=== PATIENT | male | born 1945 | race Caucasian/White ===

== ENCOUNTER → 2017-03-10 | Outpatient (CLI) | payer BC ==
[~2017-03-10] MED LIST: GERITOL COMPLETE; GLCSC750600; OMEG10007 PO; VITA400C15 PO; azo
[2017-03-10 13:06] LABS: GLUCOSE,FASTING 87 mg/dl (70-99)
[2017-03-10 13:14] LABS: CHOLESTEROL 229 mg/dl (0-200); CHOLESTEROL/HDL RATIO 3.8; HDL CHOLESTEROL 60 mg/dl; LDL CHOLESTEROL CALCULATED 155 mg/dl; PROSTATE SPECIFIC ANTIGEN < 0.010 ng/ml (0.000-4.000); TRIGLYCERIDES 68 mg/dl (0-150); VERY LOW DENSITY LIPOPROT CALC 14 mg/dl
== END | disposition home or self-care (01) ==
LOC: C.LABMFLN 10:07
PROVIDERS: ATTEND Family Medicine
DX: E78.5 Hyperlipidemia, unspecified (principal); C61 Malignant neoplasm of prostate

== ENCOUNTER → 2017-09-10 | Outpatient (CLI) | payer BC ==
[2017-09-10 14:13] LABS: CHOLESTEROL/HDL RATIO 2.8
== END | disposition home or self-care (01) ==
LOC: C.LABMFLN 09:15
PROVIDERS: ATTEND Family Medicine
DX: E78.5 Hyperlipidemia, unspecified (principal)

== ENCOUNTER → 2018-03-15 | Outpatient (CLI) | payer BC ==
[2018-03-15 14:04] LABS: GLUCOSE,FASTING 87 mg/dl (70-99)
[2018-03-15 14:12] LABS: ALT/SGPT 23 U/L (12-78); AST/SGOT 14 U/L (15-37); CHOLESTEROL 147 mg/dl (0-200); LDL CHOLESTEROL CALCULATED 84 mg/dl
== END | disposition home or self-care (01) ==
LOC: C.LABMFLN 09:18
PROVIDERS: ATTEND Family Medicine
DX: E78.5 Hyperlipidemia, unspecified (principal); C61 Malignant neoplasm of prostate

== ENCOUNTER → 2018-04-13 | Outpatient (CLI) | payer BC ==
--- NOTE | 2018-04-13 13:56 | EXERCISE STRESS ECHO ---
*NOTICE TO RECEIVING DEMOCRAT AGENCY This information is strictly Confidential and protected under [place] law. [place] law prohibits you from making any further disclosure of this information unless further disclosure is expressly permitted by the written consent of the person to whom it pertains or is authorized by law. A general authorization for the release of medical or other information is not sufficient for this purpose. Hospital accepts no responsibility if the information is made available to any other person, INCLUDING THE PATIENT. Interpretation Summary * Name: PHIL LAYTON Study Date: 04/13/2018 09:25 AM BP: 158/93 mmHg * Patient Location: [facility] HR: 95 * : 1945 (M/d/yyyy) Gender: Male Height: 70 in * Age: 72 yrs Ethnicity: CA Weight: 170 lb * Ordering Physician: Luis Ardon * Referring Physician: Luis Ardon * Performed By: Lorena Brito RDCS * * Reason For Study: Abnormal EKG * BSA: 1.9 m2 * -- Conclusions -- * Stress Echo: * 1. Negative stress echo for ischemia at 107 % MPHR. * 2. Negative exercise ECG for ischemia at 107 % MPHR. * 3. Hypertensive blood pressure response to exercise. * 4. Nonsustained atrial tachycardia up to 4 beats in duration. * 5. Study terminated due to hypertension. No chest pain reported. * 6. Poor exercise tolerance. * Echo: * 1. Normal left ventricular size and systolic function. EF 55-60%. No regional wall motion abnormalities. No left ventricular hypertrophy. Type 1 diastolic dysfunction. * 2. There is mild mitral regurgitation. * 3. There is moderate to severe mitral annular calcification. Procedure Details * ECHOEX, CPT #[id number] * ECHO DOPPLER, CPT #[id number] * ECHO COLOR FLOW, CPT #[id number] Left Ventricle * Normal left ventricular size and systolic function. EF 55-60%. No regional wall motion abnormalities. No left ventricular hypertrophy. Type 1 diastolic dysfunction. * Ejection Fraction = 55-60%. * The left ventricular ejection fraction increases normally with stress. The left ventricular end-systolic cavity size reduces post-stress (normal response). The left ventricular wall motion with stress is normal. * Resting wall motion: Normal. Stress wall motion: Appropriate increase in Left ventricular systolic function and decrease in cavity size. No stress induced segmental wall motion abnormalities. Right Ventricle * The right ventricle is normal size. * The right ventricular systolic function is normal as assessed by tricuspid annular plane systolic excursion (TAPSE) (normal >1.5 cm). Atria * The left atrial size is normal. * Right atrial size is normal. * There is no evidence of atrial septal defect, but resolution does not allow assessment for a patent foramen ovale. Mitral Valve * There is moderate to severe mitral annular calcification. * There is no mitral valve stenosis. * There is mild mitral regurgitation. Tricuspid Valve * The tricuspid valve is not well visualized, but is grossly normal. * There is no tricuspid stenosis. * There is trace tricuspid regurgitation. Aortic Valve * The aortic valve is trileaflet. * No hemodynamically significant valvular aortic stenosis. * No aortic regurgitation is present. Pulmonic Valve * The pulmonary valve is inadequately visualized, but the Doppler data is adequate for interpretation. * Mild pulmonic valvular regurgitation. Great Vessels * The aortic root is normal size. * Ascending aorta of normal dimension * Normal pulmonary venous flow pattern. Normal IVC size and inspiratory collapse. Pericardium * Trace pericardial effusion. Stress Parameters * Sinus rhythm 80 bpm. * No significant ST changes. Nonsustained atrial tachycardia up to 4 beats in duration. * The stress portion of this study was personally supervised by the undersigned interpreting physician. * Rest heart rate was '95' BPM. * Rest blood pressure was '158/93' * Maximum heart rate achieved was 157 bpm. * Maximum heart rate was 107 % of maximum age-predicted heart rate. * Maximum blood pressure was '218/109' * Total exercise time was '3:00' * Maximum exercise MET level achieved was '4.60' METS * Maximum treadmill speed was '1.70' miles per hour. * Maximum treadmill elevation was '10.00'% grade. * Exercise was terminated due to 'elevated blood pressure, and achieving target heart rate' MMode 2D Measurements and Calculations IVSd 0.95 cm LVIDd 3.9 cm LVIDs 2.7 cm LVPWd 0.91 cm IVS/LVPW 1.1 FS 31.3 % EDV(Teich) 64.4 ml ESV(Teich) 25.9 ml EF(Teich) 59.8 % EDV(cubed) 57.6 ml ESV(cubed) 18.7 ml EF(cubed) 67.5 % LV mass(C)d 108.7 grams LV mass(C)dI 55.8 grams/m\S\2 SV(Teich) 38.5 ml SI(Teich) 19.8 ml/m\S\2 SV(cubed) 38.9 ml SI(cubed) 20.0 ml/m\S\2 Ao root diam 4.0 cm Ao root area 12.7 cm\S\2 ACS 1.9 cm LA dimension 3.1 cm asc Aorta Diam 3.5 cm LA/Ao 0.76 LVOT diam 2.3 cm LVOT area 4.3 cm\S\2 LVAd ap4 31.3 cm\S\2 LVLd ap4 8.4 cm EDV(MOD-sp4) 95.0 ml EDV(sp4-el) 98.8 ml LVAs ap4 19.2 cm\S\2 LVLs ap4 7.4 cm ESV(MOD-sp4) 41.6 ml ESV(sp4-el) 42.4 ml EF(MOD-sp4) 56.2 % EF(sp4-el) 57.1 % LVAd ap2 29.6 cm\S\2 LVLd ap2 8.4 cm EDV(MOD-sp2) 85.7 ml EDV(sp2-el) 88.3 ml LVAs ap2 19.0 cm\S\2 LVLs ap2 7.5 cm ESV(MOD-sp2) 42.6 ml ESV(sp2-el) 40.7 ml EF(MOD-sp2) 50.3 % EF(sp2-el) 54.0 % LVLd %diff 0.01 % EDV(MOD-bp) 90.4 ml LVLs %diff 2.5 % ESV(MOD-bp) 42.1 ml EF(MOD-bp) 53.5 % SV(MOD-sp4) 53.4 ml SI(MOD-sp4) 27.4 ml/m\S\2 SV(MOD-sp2) 43.2 ml SI(MOD-sp2) 22.2 ml/m\S\2 SV(MOD-bp) 48.3 ml SI(MOD-bp) 24.8 ml/m\S\2 SV(sp4-el) 56.4 ml SI(sp4-el) 29.0 ml/m\S\2 SV(sp2-el) 47.7 ml SI(sp2-el) 24.5 ml/m\S\2 Doppler Measurements and Calculations MV E max angie 68.5 cm/sec MV A max angie 83.6 cm/sec MV E/A 0.82 MV dec time 0.25 sec Ao V2 max 114.7 cm/sec Ao max PG 5.3 mmHg Ao max PG (full) 3.6 mmHg CHELE(V,A) 2.4 cm\S\2 CHELE(V,D) 2.4 cm\S\2 LV V1 max PG 1.6 mmHg LV V1 max 64.2 cm/sec MR max angie 585.0 cm/sec MR max PG 136.9 mmHg MR mean angie 460.0 cm/sec MR mean PG 96.0 mmHg MR VTI 208.7 cm PA V2 max 66.4 cm/sec PA max PG 1.8 mmHg PA acc slope 427.1 cm/sec\S\2 PA acc time 0.10 sec PI end-d angei 99.2 cm/sec PI max angie 133.7 cm/sec PI max PG 7.2 mmHg PI dec slope 72.2 cm/sec\S\2 PI P1/2t 542.4 msec TR max angie 217.4 cm/sec PA pr(Accel) 35.3 mmHg
== END | disposition home or self-care (01) ==
LOC: C.CPL 09:18
PROVIDERS: ATTEND Family Medicine
DX: R94.31 Abnormal electrocardiogram [ECG] [EKG] (principal)

== ENCOUNTER 2023-12-14 08:53 | Observation (INO) ==
--- NOTE | 2023-12-03 10:32 | PAT Medication Instructions ---
Medication Instructions Date of Service December 03, 2023 Home Medications Medication Instructions Recorded lovastatin 10 mg tablet 10 mg PO QPM #90 tabs 08/03/23 cholecalciferol (vitamin D3) 25 mcg (1,000 unit) tablet (Vitamin D3) 1,000 unit PO QAM multivitamin 1 tab PO QAM acetaminophen 650 mg tablet,extended release (Tylenol 8 Hour) 650 mg PO Q8H lovastatin 10 mg tablet 10 mg PO QPM ferrous sulfate 325 mg (65 mg iron) tablet 325 mg PO QAM glucosamine-chondroitin 250 mg-200 mg tablet (Osteo Bi-Flex) 2 tab PO QAM mecobalamin (vitamin B12) 1,000 mcg disintegrating tablet,sublingual 1,000 mcg sublingual QAM nystatin 100,000 unit/gram topical cream 1 applic topical BID PRN pantoprazole 40 mg tablet,delayed release 40 mg PO QAM STOP taking 2 weeks before surgery (or as soon as possible if surgery is within 2 weeks) glucosamine-chondroitin 250 mg-200 mg tablet (Osteo Bi-Flex) 2 tab PO QAM STOP taking 24 hours before surgery nystatin 100,000 unit/gram topical cream 1 applic topical BID PRN DO NOT take the morning of surgery cholecalciferol (vitamin D3) 25 mcg (1,000 unit) tablet (Vitamin D3) 1,000 unit PO QAM multivitamin 1 tab PO QAM ferrous sulfate 325 mg (65 mg iron) tablet 325 mg PO QAM mecobalamin (vitamin B12) 1,000 mcg disintegrating tablet,sublingual 1,000 mcg s ublingual QAM Take morning of surgery With a small sip of water, OTHERWISE NOTHING TO EAT OR DRINK AFTER MIDNIGHT: acetaminophen 650 mg tablet,extended release (Tylenol 8 Hour) 650 mg PO Q8H pantoprazole 40 mg tablet,delayed release 40 mg PO QAM Take evening before surgery acetaminophen 650 mg tablet,extended release (Tylenol 8 Hour) 650 mg PO Q8H lovastatin 10 mg tablet 10 mg PO QPM Other Notes If you have any questions please call us at [phone] or [phone] or [phone] or [phone]
--- NOTE | 2023-12-08 09:04 | Anesthesiology Consultation ---
Date of Service December 08, 2023 Assessment & Plan (1) Encounter for pre-operative examination: Outpatient joint assessment: Patient is currently scheduled for inpatient pathway. If re-evaluated and patient/surgeon requests outpatient pathway, patient is not recommended candidate for outpatient joint program from anesthesia standpoint. Chart Review Chart Review: Acceptable Risk for Surgery and Patient seen in Pre Admission Testing Teaching & Discussion Pre-Anesthesia Teaching/Discussion Notes: Instructed NPO after midnight before surgery, except medications with 15 cc of water. Medication instructions pr ovided according to the PAT guidelines. History Surgery Operation Date: 12/14/23 12:55 Proposed Procedures p Right Total Knee Arthroplasty - Cheo Phan MD Height/Weight Height: 5 ft 10 in Weight: 80.7 kg Allergies Allergy/AdvReac Type Severity Reaction Status Date / Time aspirin AdvReac Intermediate Blood in Verified 12/03/23 08:59 stool Medications Home Medications Medication Instructions Recorded Confirmed Last Taken cholecalciferol (vitamin D3) 25 1,000 unit PO QAM 11/06/20 12/03/23 11/10/20 mcg (1,000 unit) tablet (Vitamin D3) multivitamin 1 tab PO QAM 11/06/20 12/03/23 11/09/20 acetaminophen 650 mg 650 mg PO Q8H 08/13/21 12/03/23 Unknown tablet,extended release (Tylenol 8 Hour) lovastatin 10 mg tablet 10 mg PO QPM #90 tabs 08/03/23 12/03/23 Unknown ferrous sulfate 325 mg (65 mg 325 mg PO QAM 08/16/23 12/03/23 Unknown iron) tablet glucosamine-chondroitin 250 mg-200 2 tab PO QAM 09/08/23 12/03/23 Unknown mg tablet (Osteo Bi-Flex) mecobalamin (vitamin B12) 1,000 1,000 mcg sublingual QAM 12/03/23 12/03/23 Unknown mcg disintegrating tablet,sublingual nystatin 100,000 unit/gram topical 1 applic topical BID PRN Skin 12/03/23 12/03/23 Unknown cream Irritation pantoprazole 40 mg tablet,delayed 40 mg PO QAM 12/03/23 12/03/23 Unknown release Past Medical History Medical History Bradycardia Hx, no recent issues Paroxysmal supraventricular tachycardia by electrocardiogram (ECG) "No additional therapy is required in the absence of recurrent symptoms." per 09/2020 [facility] cardiology note Gastritis hx, more than 1 year ago Anemia chronic Hgb 11-12 since 2020 Personal history of prostate cancer Hx age 60s, s/p brachytherapy Hypercholesterolemia Patient denies h/o stroke, seizures, heart attack, heart failure, DM, HTN, blood clots/DVTs or blood transfusions. Exercise / Class Metabolic Activity II 4-5 Yardwork/Stairs/Walk up hill (denies chest discomfort or shortness of breath with 1 FOS) Past Family History Family History Other No family history of adverse response to anesthesia No pertinent family history Past Surgical History Surgical History Hx of brachytherapy History of esophagogastroduodenoscopy (EGD) Dr. Perry 11/11/20 History of herniorrhaphy inguinal History of colonoscopy Dr. Perry 11/11/20 Past Anesthesia History No Hx of Anesthesia Complications and No Family Hx of Anesthesia Complications History of PONV No Hx of PONV and Hx of Motion Sickness Social History Smoking Status: Never smoker Do You Dip or Chew Tobacco: No Hx Alcohol Use: No Hx Substance Use: No substance use type: does not use Review of Systems Occasional snoring, denies witnessed apneas. Patient denies chest pain, shortness of breath, dyspnea on exertion, reflux, fever, chills, cough, wheezing, or palpitations. Physical Exam Vital Signs Vitals BP 137/72 P 71 TEMP 98.3 SP02 94% on RA RESP 17 Physical Patient resting comfortably in chair in no acute distress, alert and oriented, responding appropriately throughout visit Full cervical extension range of motion without pain TMD 3.5 finger breadths Mallampati Score 2 Dentition: one cap, denies chipped or loose teeth, caps, implants or bridges Lungs: normal respiratory effort. Good air movement, clear throughout to auscultation, no adventitious breath sounds Cardiac: regular rate and rhythm, no murmurs noted Carotid arteries: negative bruit bilat Lab Results Anesthesia Preop Results Results Anesthesia Widget: WBC 8.18 K/ul (4.8-10.8) 12/08/23 Hgb 12.6 g/dl (14.0-18.0) L 12/08/23 Hct 39.1 % (42.0-52.0) L 12/08/23 Plt 281 K/uL (130-400) 12/08/23 Na 141 mmol/L (136-145) 12/08/23 K 4.6 mmol/L (3.5-5.1) 12/08/23 Cl 106 mmol/L (98-107) 12/08/23 CO2 29 mmol/L (21-32) 12/08/23 BUN 28 mg/dl (6-23) H 12/08/23 Creat 0.99 mg/dl (0.6-1.4) 12/08/23 Glucose Level 78 mg/dl (70-99(Fasting)) 12/08/23 PT 11.1 Seconds (9.0-12.0) 12/08/23 PTT 28 Seconds (21-31) 12/08/23 INR 1.0 (0.9-1.1) 12/08/23 Blood Type O Positive 12/08/23 Antibody Screen NEGATIVE 12/08/23 Testing Laboratory Results Chronic anemia, Hgb stable at 12 to chart review. Electrocardiogram Date: 12/08/23 Sinus rhythm with frequent PVCs and PACs, rate 94 bpm Otherwise normal ECG Chest X-Ray Date: 12/08/23 PA and lateral chest radiographs are compared to study dated 03/21/2008. The heart is enlarged and noted atherosclerotic calcification of the thoracic aorta. The pulmonary vasculature is noncongested. Chronic interstitial thickening is similar to previous. There is mild bibasilar scarring/atelectasis. The lungs and pleural spaces are otherwise clear. There is no pneumothorax. The skeletal structures are osteopenic. The bony thorax appears intact. IMPRESSION: Cardiomegaly with no active disease in the chest. Stress Test Date: 10/02/20 METS 4 MPHR 152% SVT developed during exercise with heart rates as high as 218 bpm Study terminated due to SVT EF 55-60% No regional wall motion abnormalities Moderate cLVH Mild mitral regurgitation
[~2023-12-14 08:53] MED LIST changes: +ACETAMINOPHEN 500 MG TAB PO SCH; +BUPIVACAINE 0.25% PF 30 ML VIAL ONE; +BUPIVACAINE 0.5 % 5 MG/1 ML PF 10ML VIAL ONE; +CeleBREX 200 MG CAP PO SCH; +FAMOTIDINE 20 MG TAB PO SCH; -GERITOL COMPLETE; -GLCSC750600; +LR 500ML BOLUS, THEN 15ML/HR IV SCH; +LR 60ML/HR IV SCH; +METOCLOPRAMIDE HCL 10 MG TABLET PO SCH; +MIDAZOLAM HCL 1 MG/ML 2ML VIAL ONE; -OMEG10007 PO; +ROPIV 0.5% 246mg, Ketorolac 30mg, EPINEPHrine 0.5mg in NSS INFIL SCH; +TRANEXAMIC ACID 1,000 MG **IV Intra-op IV SCH; -VITA400C15 PO; -azo; +ceFAZolin 2000MG 2,000 MG/15 ML SYR IV SCH; +dexAMETHasone**PF** 10 MG/ML VIAL IV SCH
--- NOTE | 2023-12-14 09:01 | History & Physical Bridge Note ---
Date of Service December 14, 2023 History & Physical Bridge Note I have examined the patient, reviewed the History & Physical and in the interval since the performance of the History & Physical I have noted the following changes of clinical significance: no changes noted
[2023-12-14] MEDS ORDERED: BUPIVACAINE/EPINEPHRINE 0.5% MPF 1:200,000 30 ML VIAL ONE (11:07)
[2023-12-14] MEDS ORDERED: SODIUM CHLORIDE 0.9% PF 50 ML VIAL ONE (11:07)
[2023-12-14] MEDS ORDERED: BUPIVACAINE LIPOSOME 1.3% 266 MG/20 ML VIAL ONE (11:08)
[2023-12-14] MEDS ORDERED: PROPOFOL IV EMULSION 10 MG/ML 20 ML VIAL IV ONE (12:15)
--- NOTE | 2023-12-14 13:18 | Operative Report ---
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 The grade 4 [id number] disease in all 3 compartments most severe medially. He had a fixed varus deformity to his knee. Chronic ACL deficiency. Osteophytes in all 3 compartments. Specimens Right knee sent for pathology. Anesthesia Type Spinal MAC Complications none Disposition Accompanied Patient To Recovery: No Indications Patient is an 78-year-old very active [place] who has had a long history of bilateral knee pain discomfort describes gotten worse over time. He exhausted conservative care. Pains become more disabling. He elected proceed with right total knee arthroplasty. Description of Procedure Operative implants consist of: 1. Biomet Vanguard size 75 right posterior stabilized femoral component. 2. Biomet size 79 tibial tray. 3. 12 mm posterior stabilized polyethylene insert. 4. 34 x 8-1/2 all poly patella. The patient was taken to the operating, identified, placed on the operating table in the supine position. All contact areas were appropriately padded. IV antibiotics 5 by anesthesia team. A spinal anesthetic and adductor canal block had been divided in the holding area. A right thigh turn was then placed. The right lower extremities then prepped and draped in usual sterile fashion. The right leg was elevated exsanguinated with use of an Esmarch and the tourniquet was placed at 300 mmHg. An anterior approach to the right knee was then performed to longitudinal incision centered over the patella. Sharp dissection was carried through subcutaneous tissue down the extensor mechanism. A medial parapatellar arthrotomy incision was made. Some subperiosteal dissection was carried out medially. The fat pad was resected from Neath patella tendon. The lateral patellofemoral ligament was released. Patella subluxated laterally knee was flexed. The osteophytes taken on distal femur. ACL PCL then released from distal femur the tibia subluxated anteriorly. The external tibial alignment jig was then placed in the interface the tibia and adjusted 14 mm medially. Proximal tibial cut was made essentially flush with the most deficient aspect the posterior medial tibial plateau. Some osteophytes were taken off medially. Tibia was sized to a size 79. Attention drawn the femur. The distal femur examined the sharp drill. Intramedullary canal was suction. A right 6 degree valgus cutting guide was placed. Distal femoral cutting block was pinned in place. Distal femoral cut was made to take an additional 3 mm of bone off distal femur. The femur was then sized to a size 75. The AP cutting block was pinned parallel to the epicondylar axis which was 4 degrees of external rotation. The anterior cut, anterior chamfer, posterior cut, posterior chamfer cuts were made. The box cutting guide was placed in just slight lateral and the box cut was made to the knee was flexed. The remnants of the medial and lateral menisci were excised. The osteophytes taken off the posterior aspect the femur. Trial femoral component was placed. The tibial tray was pinned Binta external rotation and the drill and stem punch used to create defect in proximal tibia for the tibial tray. The knee was then trialed and the 12 mm insert fit most appropriately. Attention drawn the patella. The patella was cleaned of all soft tissues. Patella thickness measured 25 mm in thickness was cut down to 14. Was sized to a size 34 patella. The lug holes were drilled for 34 patella. The lateral osteophyte was made. Patella button was placed. Knee was taken through range of motion patella tracked nicely with no thumbs test. Attention drawn to placing the permanent components. Nupathe all trial components were removed. Bone plug was placed in the distal femur limit blood loss. A double batch Palacos G cement was mixed. Biomet Vanguard size 75 right Po stabilized femoral component, size 79 tibial tray, a size 12 mm post stabilized polyethylene insert, and a size 34 x 8 and half all Paller patella then cemented in place. Knee was brought out into full extension till cement hardened. Final cement check was then performed. The pericapsular tissues were injected with total 100 cc of combination of 20 cc of Exparel, 30 cc normal saline, 50 cc of quarter percent Marcaine with epinephrine. Patient did receive 1 g tranexamic acid. The tourniquet was let down for final tourniquet time 56 minutes. Hemostasis assured use electrocautery. Extensor Meclomen closed with combination 1 PDS suture #1 Vicryl suture in a [id number] fashion. Extensor mechanism checked found to be intact through the subcutaneous tissue then closed with 2 Dexon suture in buried interrupted fashion skin was closed skin evan. Leg was then cleaned and dried and a sterile dressing with Xeroform, 4 fours, sterile cast padding, José Antonio bandage were applied. Patient then transferred to the recovery room in stable condition. Patient tolerated procedure well and there were no complications. Emmanuel Naik, my physician resident care assistant, was present for the entire procedure. His assistance was essential and required for appropriate patient positioning, prepping and draping, surgical exposure, performing the technical details of the operation, placement the implants, closure of the wound, and placement of the sterile bandage. I attest to the content of the Intraoperative Record and any orders documented therein. Any exceptions are noted below.
[2023-12-14] MEDS ORDERED: ePHEDrine sulfate 50 MG/ML AMP IV PRN (13:50)
[2023-12-14] MEDS ORDERED: ATROPINE SULFATE 0.1 MG/ML 10ML SYR IV PRN (13:50)
[2023-12-14] MEDS ORDERED: fentaNYL citrate PF 100 MCG/2 ML VIAL IV PRN (13:50)
[2023-12-14] MEDS ORDERED: ONDANSETRON INJ 2 MG/ML 2 ML VIAL IV PRN ×2 (13:50→14:48)
--- NOTE | 2023-12-14 14:01 | XRay Report ---
XR knee RT 1 or 2V routine HISTORY: 78 years-old Male Surgical Post Op right knee arthroplasty COMPARISON: 12/02/2023 TECHNIQUE: 2 views the right knee FINDINGS: Right knee total joint arthroplasty with patellar resurfacing. Anterior midline skin evan with exp ected postoperative soft tissue swelling and deep tissue air. Arterial calcifications. No acute fract ure, dislocation or unexpected opaque foreign body. IMPRESSION: Total joint arthroplasty with expected postoperative changes. ACT 112: Negative or not required by law. The above report was generated using voice recognition software. It may contain grammatical, syntax o r spelling errors. Electronically signed by: Ramy Kumar M.D. 12/14/2023 1:59 PM
[2023-12-14] MEDS ORDERED: METOCLOPRAMIDE HCL INJ 5 MG/ML 2 ML VIAL IV PRN (14:48)
[2023-12-14] MEDS ORDERED: NALOXONE HCL 0.4 MG/1 ML VIAL/CARP IV PRN (14:48)
[2023-12-14] MEDS ORDERED: ALUMINUM/MAGNESIUM SUSP 30 ML UDC PO PRN (14:48)
[2023-12-14] MEDS ORDERED: MAGNESIUM HYDROXIDE SUSP 30 ML UDC PO PRN (14:48)
[2023-12-14] MEDS ORDERED: bisacodyL 10 MG SUPP PR PRN (14:48)
[2023-12-14] MEDS ORDERED: oxyCODONE HCL IR 5 MG TAB (IMMEDIATE RELEASE) PO PRN (14:48)
[2023-12-14] MEDS ORDERED: HYDROmorphone INJ 0.5 MG/0.5 ML SYR IV PRN (14:48)
--- NOTE | 2023-12-14 15:01 | Anesthesiology Progress Note ---
Date of Service December 14, 2023 Anesthesia Post Procedure Vital Signs Vital Signs: Temp Pulse Pulse Resp BP Pulse Ox O2 Del Method 12/14/23 14:30 36.5 C 99 H 18 136/85 99 Room Air 12/14/23 14:05 91 H 16 128/74 94 Room Air 12/14/23 13:50 36.4 C L 94 H 16 113/83 94 Room Air 12/14/23 13:40 97 H 16 136/76 95 Room Air 12/14/23 13:30 96 H 15 134/76 97 Room Air 12/14/23 13:20 98 H 17 113/76 97 Oxymask 12/14/23 13:11 36.2 C L 101 H 17 108/65 96 Oxymask 12/14/23 09:29 36.4 C L 86 20 174/92 H 96 Room Air O2 Flow Rate 12/14/23 14:30 12/14/23 14:05 12/14/23 13:50 12/14/23 13:40 12/14/23 13:30 12/14/23 13:20 5 12/14/23 13:11 5 12/14/23 09:29 Transfer of Care Handoff Completed per policy Notes Mental Status: alert / awake / arousable Patient Amnestic to Procedure: Yes Nausea / Vomiting: adequately controlled Pain: adequately controlled Airway Patency, RR, SpO2: stable & adequate BP & HR: stable & adequate Hydration State: stable & adequate Neuraxial Anesthesia: was administered and sensory block is resolving Anesthetic Complications: no major complications apparent and Pt Satisfied with anesthetic care
[2023-12-14] MEDS: SODIUM CHLORIDE 0.9% 1,000 ML IV SCH (15:25)
[2023-12-14] MEDS: ACETAMINOPHEN 500 MG TAB PO SCH ×2 (15:25→20:28)
[2023-12-14] MEDS: KETOROLAC TROMETHAMINE 15 MG/ML VIAL IV SCH ×2 (15:25→20:32)
[2023-12-14] MEDS: ASCORBIC ACID 500 MG TAB PO SCH (16:31)
--- NOTE | 2023-12-14 17:56 | Surgery Progress Note ---
Date of Service December 14, 2023 Assessment & Plan (1) Status post right knee replacement: Plan: 78-year-old male monroy a postop from a right knee replacement clinically doing well. Has been a little bit tachycardic. Rates and rhythms are slightly abnormal to my exam. Will have the medicine guys evaluate him in manage any medical issues. Clinically he is doing fine. Plan: 1. DVT prophylaxis including thigh-high teds, SCDs, okay to start Xarelto at a prophylactic dose 24 hours postop due to his intolerance to aspirin. 2. PT/OT. Weight-bear as tolerated right total knee protocol. 3. Pain control doing okay with current pain regimen. 4. Tachycardia and hypertension. Will get a medicine consult. This gentleman is 78 years old and will have them just evaluate him. 5. IV antibiotics x 24 hours. 6. Disposition plan to discharge home with some home health if he does well in the hospital Admission and Anticipated Discharge Date Admission Date: December 14, 2023 Subjective 78-year-old former postop from right knee replacement. He is doing well. Really not have much pain yet. No chest pain or shortness of breath. It is completely comfortable. He has been slightly tachycardic with some slight hypertension postoperatively. Physical Exam Physical Exam: Physical nation of the right leg reveals leg to be well aligned. He can dorsiflex and plantarflex his foot appropriately. Is got brisk refill. He is neurologically intact. Respiratory: normal respiratory effort, lungs clear to auscultation Cardiovascular: 6 cardiovascular exam reveals him to be slightly tachycardic. Is slightly irregularly rhythm Gastrointestinal (Abdomen): normal bowel sounds, soft, nontender, no hepato splenomegaly Results & Data Vital Signs (Past 12 Hours) Vital Signs Temp Pulse Pulse Resp BP Pulse Ox O2 Del Method 12/14/23 17:46 36.4 C L 106 H 18 159/84 H 90 Room Air 12/14/23 16:30 36.5 C 103 H 16 178/82 H 96 Room Air 12/14/23 15:30 36.8 C 100 H 16 174/82 H 94 Room Air 12/14/23 15:09 36.4 C L 103 H 18 174/77 H 95 Room Air 12/14/23 14:30 36.5 C 99 H 18 136/85 99 Room Air 12/14/23 14:05 91 H 16 128/74 94 Room Air 12/14/23 13:50 36.4 C L 94 H 16 113/83 94 Room Air 12/14/23 13:40 97 H 16 136/76 95 Room Air 12/14/23 13:30 96 H 15 134/76 97 Room Air 12/14/23 13:20 98 H 17 113/76 97 Oxymask 12/14/23 13:11 36.2 C L 101 H 17 108/65 96 Oxymask 12/14/23 09:29 36.4 C L 86 20 174/92 H 96 Room Air O2 Flow Rate 12/14/23 17:46 12/14/23 16:30 12/14/23 15:30 12/14/23 15:09 12/14/23 14:30 12/14/23 14:05 12/14/23 13:50 12/14/23 13:40 12/14/23 13:30 12/14/23 13:20 5 12/14/23 13:11 5 12/14/23 09:29 Diagnostic Findings X-ray of the knee from [facility] reviewed. Shows right total knee replacement. Components remain in good position. No signs of problems. PG Care Time/CCT Total # of Minutes Spent Total Time Spent with Patient: Total time spent is greater than 50% in coordination of care (as documented) at patient's floor/unit and/or counseling patient: Coding Level of Care Code None Diagnoses Status post right knee replacement Z96.651
[2023-12-14] MEDS: ceFAZolin 2000MG 2,000 MG/15 ML SYR IV SCH (18:23)
--- NOTE | 2023-12-14 18:47 | Hospitalist Consultation ---
Date of Consultation December 14, 2023 Assessment & Plan (1) Elevated blood pressure readinyo Male with PMH paroxysmal SVT, PVCs, PACs, HLD here for right knee replacement, medicine consulted for concern HTN tachycardia. Tachycardia -EKG per my read NSR with occasional PVCs -patient asymptomatic -cardiology note 2019 notes history of ectopic atrial and ventricular beats with stress, arrythmia determined to not be dangerous, patient was recommended to stop metoprolol. Metoprolol was not stopped at that time -09/20 patient developed bradycardia, metoprolol was discontinued, bradycardia improved. -no need for additional rate control at this time Elevated blood pressure reading without diagnosis of HTN -Patient declined prior history of HTN -BP currently 159/84, given patient's very recent right knee replacement is likely elevated given recent stress/pain. Recommend pain control, BP recheck with PCP in outpatient setting. -no need for additional medications at this time HLD -continue home lovastatin Gastritis -continue protonix Right knee replacement -surgery 12/14 -continue following ortho -xarelto started for DVT prophylaxis -continue bowel regime BPH -continue tamsulosin Thank you for allowing me to participate in this patient's care. Please tiger text if any concerns. (2) Tachycardia: (3) Dyslipidemia: (4) Gastritis: (5) Paroxysmal supraventricular tachycardia by electrocardiogram (ECG): (6) Bradycardia: Supervising Physician Co-Signing Physician Notes I personally saw and examined the patient. I verified all velez points and agree with resident physician Dr Dione Veras, with the following exceptions and/or additions: 78 year old male POD#0 right knee arthroplasty. Medicine consulted due to hypertension and tachycardia. Patient denies any vision changes, chest pain, palpitations or shortness of breath. O/E HS tachycardic with occasional ectopic beats, Chest CTAB, Abdo SNT, ankle dorsi/plantarflex intact distal to operation site with normal sensation A/P Tachycardia - appears sinus with frequent PVCs. Initial EKG computer read as a. fib however clear p waves present. Mg level added to am labs given frequency of PVCs Elevated blood pressure - Agree with resident above this does not need treating unless sBP sustained above 180 may consider treatment but generally acute management of hypertension in setting of surgery the risk of treatment significant outweighs the lack of benefit. Patient shoulder follow up with his primary care physician to make sure normalizes. History of Present Illness Reason for Consultation: HTN tachycardia Attending Physician: Cheo Phan MD History of Present Illness 78yo Male with PMH paroxysmal SVT, PVCs, PACs, HLD here for right knee replacement, medicine consulted for concern HTN tachycardia. EKG was ordered, per my read demonstrated NSR with occasional PVCs. Patient states his knee replacement was today, tolerated procedure well. He denies any headache dizziness lightheadedness SOB N/V chest pain abd pain numbness tingling in extremities. Patient states he occasionally has elevated BP in outpatient but will improve upon recheck. Patient recalls he had a stress test on a treadmill that was 2min long and was sent to cardiology, cardiology stated he did not need any medication changes. Patient states at one point he was on a medication for either fast or slow heart rate but is not currently on the medication. He was started on a blood thinner by ortho. Patient manages his own medications at home. Allergies Allergy/AdvReac Type Severity Reaction Status Date / Time aspirin AdvReac Intermediate Blood in Verified 12/14/23 09:41 stool Home Medications Medication Instructions Recorded Confirmed Type cholecalciferol (vitamin D3) 25 1,000 unit PO QAM 11/06/20 12/14/23 History mcg (1,000 unit) tablet (Vitamin D3) multivitamin 1 tab PO QAM 11/06/20 12/14/23 History acetaminophen 650 mg 650 mg PO Q8H 08/13/21 12/14/23 History tablet,extended release (Tylenol 8 Hour) lovastatin 10 mg tablet 10 mg PO QPM #90 tabs 08/03/23 12/14/23 Rx ferrous sulfate 325 mg (65 mg 325 mg PO QAM 08/16/23 12/14/23 History iron) tablet glucosamine-chondroitin 250 mg-200 2 tab PO QAM 09/08/23 12/14/23 History mg tablet (Osteo Bi-Flex) mecobalamin (vitamin B12) 1,000 1,000 mcg sublingual QAM 12/03/23 12/14/23 History mcg disintegrating tablet,sublingual nystatin 100,000 unit/gram topical 1 applic topical BID PRN Skin 12/03/23 12/14/23 History cream Irritation pantoprazole 40 mg tablet,delayed 40 mg PO QAM 01/05/24 01/16/24 History release acetaminophen 500 mg tablet 1,000 mg (2 x 500 mg) PO TID pain 12/11/23 12/14/23 Rx (Tylenol Extra Strength) 30 days #180 tabs cefadroxil 500 mg capsule 500 mg PO BID 7 days #14 caps 12/11/23 12/14/23 Rx ondansetron 4 mg disintegrating 4 mg PO Q8 PRN nausea #20 tabs 12/11/23 12/14/23 Rx tablet oxycodone 5 mg tablet 5 - 10 mg (1 - 2 x 5 mg) PO Q6 PRN 12/11/23 12/14/23 Rx pain #40 tabs rivaroxaban 10 mg tablet (Xarelto) 10 mg PO DAILY prevent blood clots 12/11/23 12/14/23 Rx 30 days #30 tabs sennosides 8.6 mg tablet (Senokot) 8.6 mg PO BID prevent constipation 12/11/23 12/14/23 Rx 14 days #28 tabs tamsulosin 0.4 mg capsule (Flomax) 0.4 mg PO DAILY #7 caps 12/11/23 12/14/23 Rx Patient History Medical History (Updated 12/14/23 @ 18:56 by Dione Veras DO) Bradycardia Hx, no recent issues Paroxysmal supraventricular tachycardia by electrocardiogram (ECG) "No additional therapy is required in the absence of recurrent symptoms." per 09/2020 [facility] cardiology note Gastritis hx, more than 1 year ago Anemia chronic Hgb 11-12 since 2020 Personal history of prostate cancer Hx age 60s, s/p brachytherapy Hypercholesterolemia Surgical History (Updated 12/14/23 @ 17:54 by Cheo Phan MD) Status post right knee replacement Hx of brachytherapy History of esophagogastroduodenoscopy (EGD) Dr. Perry 11/11/20 History of herniorrhaphy inguinal History of colonoscopy Dr. 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: [employer]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 How many Children do You have: 3 How many Children do You have Comment: 3 Other Information That Helps Us Care for You: No Feels Safe at Home: Yes Safety Concerns: Feels Safe At This Time Childhood Exposure to Second-Hand Smoke: No Diet: regular caffeine: Yes Dental Care, Regularly: Yes Physical Activity Frequency: 5-6 Times per Week Physical Activity Frequency Comment: physical labor Seatbelt Use: always Sunscreen Use: Yes Assistive Devices: Walker Physical Exam Constitutional: well developed and well nourished Eyes: PERRL, conjunctivae normal, anicteric sclerae ENMT: external ear and nose normal, oropharynx normal Neck: trachea midline, no thyromegaly Respiratory: normal respiratory effort, lungs clear to auscultation Cardiovascular: Rate/Rhythm: regular rhythm and + tachycardic Skin: no rashes, warm and dry Neurologic: CN's II-XI intact bilaterally Results & Data Results & Data Vital Signs (Past 12 Hours) Vital Signs Temp Pulse Pulse Resp BP Pulse Ox O2 Del Method 12/14/23 17:46 36.4 C L 106 H 18 159/84 H 90 Room Air 12/14/23 16:30 36.5 C 103 H 16 178/82 H 96 Room Air 12/14/23 15:30 36.8 C 100 H 16 174/82 H 94 Room Air 12/14/23 15:09 36.4 C L 103 H 18 174/77 H 95 Room Air 12/14/23 14:30 36.5 C 99 H 18 136/85 99 Room Air 12/14/23 14:05 91 H 16 128/74 94 Room Air 12/14/23 13:50 36.4 C L 94 H 16 113/83 94 Room Air 12/14/23 13:40 97 H 16 136/76 95 Room Air 12/14/23 13:30 96 H 15 134/76 97 Room Air 12/14/23 13:20 98 H 17 113/76 97 Oxymask 12/14/23 13:11 36.2 C L 101 H 17 108/65 96 Oxymask 12/14/23 09:29 36.4 C L 86 20 174/92 H 96 Room Air O2 Flow Rate 12/14/23 17:46 12/14/23 16:30 12/14/23 15:30 12/14/23 15:09 12/14/23 14:30 12/14/23 14:05 12/14/23 13:50 12/14/23 13:40 12/14/23 13:30 12/14/23 13:20 5 12/14/23 13:11 5 12/14/23 09:29 Resident Activity Tracking Resident Involvement: Resident Care Provided Care Provided: Adult [facility]
[2023-12-14] MEDS ORDERED: TRANEXAMIC ACID / 0.7% NACL 1,000 MG/100 ML BAG IV SCH (19:15)
[2023-12-14] MEDS: SENNA 8.6 MG TAB PO SCH (20:29)
[2023-12-14] MEDS: DOCUSATE SODIUM 100 MG CAP PO SCH (20:30)
[2023-12-14] MEDS ORDERED: LOVASTATIN 20 MG TAB PO SCH (21:00)
[2023-12-14] MEDS ORDERED: SENNA 8.6 MG TAB PO SCH (21:00)
[2023-12-15] MEDS: SODIUM CHLORIDE 0.9% 1,000 ML IV SCH (00:58)
[2023-12-15] MEDS: ceFAZolin 2000MG 2,000 MG/15 ML SYR IV SCH (03:04)
[2023-12-15] MEDS: KETOROLAC TROMETHAMINE 15 MG/ML VIAL IV SCH ×2 (03:04→08:53)
[2023-12-15 07:43] LABS: Hematocrit (blood only) 30.6 % (42.0-52.0); Hemoglobin 10.1 g/dl (14.0-18.0); Mean Corpuscular Hemoglobin 31.1 pg (25.0-34.0); Mean Corpuscular Volume 94.2 fL (80.0-100.0); Mean Platelet Volume 9.7 fL (9.4-12.4); Platelet Count 270 K/uL (130-400); RDW Coefficient of Variation 12.7 % (11.5-14.5); RDW Standard Deviation 44.4 fL (36.4-46.3); Red Blood Count 3.25 M/uL (4.70-6.10); White Blood Count 12.41 K/ul (4.8-10.8)
[2023-12-15] MEDS ORDERED: dexAMETHasone 10 MG in SYRINGE 0 ML IV SCH (08:00)
[2023-12-15 08:01] LABS: BUN Creatinine Ratio 27.3 (10-20); Calcium 8.6 mg/dl (8.6-10.3); Creatinine Clr Calc Pharmacy 61.4 ml/min; Est GFR (Non-African American) 71.6 ml/min; Magnesium 1.7 mg/dl (1.7-2.4); Potassium 4.3 mmol/L (3.5-5.1)
--- NOTE | 2023-12-15 08:28 | Billing Data ---
Date of Service December 14, 2023 Coding Level of Care Code 74444 IN/OBS CONSULT LVL 4,60M
[2023-12-15] MEDS: ACETAMINOPHEN 500 MG TAB PO SCH (08:51)
[2023-12-15] MEDS: ASCORBIC ACID 500 MG TAB PO SCH (08:51)
[2023-12-15] MEDS: SENNA 8.6 MG TAB PO SCH (08:52)
[2023-12-15] MEDS: DOCUSATE SODIUM 100 MG CAP PO SCH (08:52)
[2023-12-15] MEDS ORDERED: CHOLECALCIFEROL 1,000 UNITS 25 MCG TAB PO SCH (09:00)
[2023-12-15] MEDS ORDERED: PANTOprazole 40 MG TAB PO SCH (09:00)
[2023-12-15] MEDS ORDERED: CYANOCOBALAMIN (B-12) 500 MCG TABLET PO SCH (09:00)
[2023-12-15] MEDS ORDERED: NON-FORMULARY MEDICATION (Glucosamine-Chondroitin [Osteo Bi-Flex] 250-200 mg tablet) PO SCH (09:00)
[2023-12-15] MEDS ORDERED: MULTIVITAMIN TAB PO SCH (09:00)
[2023-12-15] MEDS ORDERED: FERROUS SULFATE 325 MG TAB PO SCH (09:00)
[2023-12-15] MEDS ORDERED: NON-FORMULARY MEDICATION (Multivitamin Tablet) PO SCH (09:00)
[2023-12-15] MEDS ORDERED: TAMSULOSIN HCL 0.4 MG CAP PO SCH (09:00)
--- NOTE | 2023-12-15 09:38 | Orthopedic Progress Note ---
Date of Service December 15, 2023 Assessment & Plan (1) Status post right knee replacement: Overall, he is doing quite well today with good pain control to the right knee. He will work with physical therapy later this morning to work on ambulation and range of motion exercises. He is currently on Xarelto for DVT prophylaxis. He can be discharged home later this morning pending physical therapy evaluation. He will follow-up with Dr. Phan in 2 weeks for postoperative care. Subjective . Sridhar was seen and evaluated at bedside this morning resting comfortably in no apparent distress. He notes that his pain is under control to the right knee. He has been up and out of bed but no significant issues. He has yet to work with physical therapy this morning. He denies any other concerns today. Review of Systems All systems reviewed & are unremarkable except as noted in HPI & below. Physical Exam . On physical examination of the right knee, his dressings are clean, dry, intact. His right leg is out in full extension. He has active plantarflexion dorsiflexion to the right ankle. +2 DP and PT pulses. Less than 2-second capillary refill. Normal sensation. Neurovascular intact. Results & Data Results & Data Laboratory Results . Diagnostic Findings . Postoperative x-rays of the right knee show prosthesis to be in anatomical alignment with no signs of fracture complication or loosening. PG Care Time/CCT Total # of Minutes Spent Total Time Spent with Patient: Total time spent is greater than 50% in coordination of care (as documented) at patient's floor/unit and/or counseling patient: Coding Level of Care Code 91786 Post Operative Follow-Up Diagnoses Status post right knee replacement Z96.651
--- NOTE | 2023-12-15 09:41 | Discharge Summary ---
Date of Service December 15, 2023 Principal Diagnosis Same as "Discharge Diagnosis" noted below under Discharge Instructions. Discharge Exam . On physical examination of the right knee, his dressings are clean, dry, intact. His right leg is out in full extension. He has active plantarflexion dorsiflexion to the right ankle. +2 DP and PT pulses. Less than 2-second capillary refill. Normal sensation. Neurovascular intact. Discharge Data Consultations 12/14/23 17:11 Consult Hospitalist Routine Procedures Performed Operation Date: 12/14/23 10:40 Actual Procedures p Right Total Knee Arthroplasty(Right) - Cheo Phan MD Ordered Studies 12/14/23 05:00 US - OR guided needle placemen Routine Hospital Course (1) Status post right knee replacement: On December 14, [address] [facility] and underwent a right total knee arthroplasty with Dr. Phan without any complications. He had a spinal anesthetic. Postoperatively, he was transferred to the PACU for immediate postoperative care and then transferred up to the general orthopedic floor in stable condition. His hospital course was uneventful. On postoperative day #1, his vital signs were stable and his pain was well- controlled. He was started on Xarelto for DVT prophylaxis. He participated well with physical therapy working on ambulation and range of motion exercises. He was then discharged home in stable condition. He will follow-up with Dr. Phan in 2 weeks for postoperative care. PG Care Time/CCT Total # of Minutes Spent Total Time Spent with Patient: Total time spent is greater than 50% in coordination of care (as documented) at patient's floor/unit and/or counseling patient: Discharge Plan Discharge Items Patient Disposition: Home - Home Health Services Reason For Visit: Right Knee Degnerative Joint Disease Discharge Diagnosis: Right Knee Replacement Activity: Per Instructions section Non-emergency contact: Surgeon Call non-emergency contact if: you have any medication questions Follow-up/Referrals: Luis Ardon MD [Primary Care Provider] - Diet: Regular Addtl Attending Provider Instructions: ACTIVITY RECOMMENDATIONS: Physical Therapy: * You will go to physical therapy three times each week for four to six weeks after your surgery in order to regain your knee range of motion and to retrain your knee to work properly. * It is just as important to make sure you are getting your knee perfectly straight as it is to regain your knee bend. * Taking a pain pill an hour before therapy can help you have a more productive and comfortable therapy session. Home Exercise: * You were shown a series of exercises (heel props, heel slides, etc.) in the hospital. Do these exercises three to four times each day including the exercises you were shown in physical therapy. Walking: * Get up and walk several times each day. For the first four weeks, try not to stand or walk for more than one hour at a time. If you do stand or walk for more than one hour, you will not hurt anything, but your knee and leg will likely swell. * As you feel comfortable, you may change from the walker or crutches to a cane and then to independent walking. MEDICATIONS: New Medicine: * You will likely be taking one or more of these medications: 1. Oxycodone - A quick and shorter-acting pain medication. Take one to two tablets every six hours to lessen your pain. 2. Xarelto - Thins your blood to lessen the chance of forming a blood clot. * The most common side effects of pain medicine and iron are nausea and constipation. If nausea or constipation is too much of a problem or if you have any questions about your new medicines or doses, call [facility] at . We will try to help you manage these issues. "VERY IMPORTANT TO READ AND REVIEW" Pain: * The immediate post-operative period after knee replacement surgery is often quite painful. * You are given a prescription for pain medicine. You should take it, as directed, when you need it, especially before physical therapy and before going to bed. Pain that interferes with sleep is very common and can last several months. * You will likely need pain medicine for the first four to six weeks. It will not stop all of the pain. The pain will lessen and as you feel better, you may change to milder pain medicine such as Tylenol. * The most common side effects of pain medicine are nausea and constipation, so don't take more than you need. SPECIAL CARE INSTRUCTIONS: TEDs/Elastic Stockings: * The white elastic stockings help limit swelling and prevent blood clots from forming in your legs. The more you wear them, the more they work. * Wear them for six weeks after knee replacement surgery and four weeks after partial knee replacement. Incision Site Care: * Remove dressing postoperative day 2 and then shower. Keep direct shower pressure off the incision site. * After showering, cover evan with dry gauze and change daily or more frequently if the dressing is getting saturated with drainage. * Use the BIANCA stockings to hold dressing in place. DO NOT apply tape on the skin. * May completely stop using bandage if wound is dry and no drainage * Otoe are removed between 2 and 3 weeks post-op. If your follow-up appointment is made before 2 weeks, please have your appointment re- scheduled. It is too early to remove the evan. Prevention of Infection: * Take antibiotics one hour before any dental cleaning, dental work, urological procedure, gastrointestinal procedure or any invasive surgery in order to prevent your new joint from getting infected. * You may get the antibiotics from the doctor performing the procedure or you may call our office at [phone] before and we will call in a prescription to the pharmacy of your choice. Things to Watch For: * Drainage from the incision site that occurs more than one week after your surgery. * Severely increased knee/leg pain or swelling. * Increased redness at the incision site. * Fever above 102 degrees Fahrenheit. * Unusual chest pain or shortness of breath. * Unusual pain or burning with urination. Call [facility] at [phone] with any of the above problems or if you have any questions about your medicines or recovery. FOLLOW UP VISIT: Make an appointment to see your doctor for approximately two weeks after surgery for a progress check and staple removal by calling the office at [phone]. Pending Studies at Discharge: No Stand-Alone Forms: [facility], Smoking Cessation Medications and DC Order Prescriptions: Continued lovastatin 10 mg tablet 10 mg PO QPM Qty: 90 3RF ondansetron 4 mg tablet,disintegrating 4 mg PO Q8 PRN (Reason: nausea) Qty: 20 1RF Rx Instructions: Take as needed for nausea oxycodone 5 mg tablet 5 - 10 mg PO Q6 PRN (Reason: pain) Qty: 40 0RF Rx Instructions: Take as needed for pain sennosides [Senokot] 8.6 mg tablet 8.6 mg PO BID 14 Days Qty: 28 0RF Rx Instructions: Take two times a day to prevent/treat constipation acetaminophen [Tylenol Extra Strength] 500 mg tablet 1,000 mg PO TID 30 Days Qty: 180 0RF Rx Instructions: Take 3 times per day to lessen pain. cefadroxil 500 mg capsule 500 mg PO BID 7 Days Qty: 14 0RF Rx Instructions: Take 1 cap twice a day to prevent infection tamsulosin [Flomax] 0.4 mg capsule 0.4 mg PO DAILY Qty: 7 0RF Rx Instructions: Begin night BEFORE surgery to prevent urinary retention Xarelto 10 mg tablet 10 mg PO DAILY 30 Days Qty: 30 0RF Rx Instructions: Take 1 tablet daily for 30 days to prevent blood clots glucosamine-chondroitin [Osteo Bi-Flex] 250-200 mg tablet 2 tab PO QAM Rx Instructions: give after food/meal ferrous sulfate 325 mg (65 mg iron) tablet 325 mg PO QAM multivitamin Tablet 1 tab PO QAM cholecalciferol (vitamin D3) [Vitamin D3] 25 mcg (1,000 unit) Tablet 1,000 unit PO QAM pantoprazole 40 mg tablet,delayed release (DR/EC) 40 mg PO QAM nystatin 100,000 unit/gram cream 1 applic topical BID PRN (Reason: Skin Irritation) mecobalamin (vitamin B12) 1,000 mcg tablet,disintegrating 1,000 mcg sublingual QAM Rx Instructions: place tablet under tongue and allow to dissolve for at least30 secs before swallowing Discontinued acetaminophen [Tylenol 8 Hour] 650 mg tablet extended release 650 mg PO Q8H Admission Data Admit Date/Time: 12/14/23 13:15 Attending Provider: Cheo Phan Admit Provider: Cheo Phan Primary Care Provider: Luis Ardon Other Providers: [facility]; Abdi Hollis
[2023-12-15] MEDS ORDERED: RIVAROXABAN 10 MG TABLET PO SCH (14:00)
--- NOTE | 2023-12-17 21:17 | Electrocardiogram Report ---
Test Reason : Blood Pressure : / mmHG Vent. Rate : 112 BPM Atrial Rate : 112 BPM P-R Int : 210 ms QRS Dur : 090 ms QT Int : 344 ms P-R-T Axes : 000 020 027 degrees QTc Int : 469 ms Poor data quality, interpretation may be adversely affected Sinus tachycardia with 1st degree A-V block with frequent Premature atrial complexes and occasional P VCs When compared with ECG of 08-DEC-2023 09:29, Nonspecific T wave abnormality now evident in Inferior leads Confirmed by Olman Fine ([id number]) on 12/17/2023 9:17:33 PM Referred By: Cheo Phan Confirmed By:Olman Fine
--- NOTE | 2023-12-17 21:19 | Electrocardiogram Report ---
Test Reason : Blood Pressure : / mmHG Vent. Rate : 110 BPM Atrial Rate : 110 BPM P-R Int : 202 ms QRS Dur : 090 ms QT Int : 340 ms P-R-T Axes : 048 038 040 degrees QTc Int : 460 ms Sinus tachycardia with frequent , and consecutive Premature ventricular complexes Abnormal ECG When compared with ECG of 14-DEC-2023 17:33, Premature atrial complexes are no longer Present Confirmed by Olman Fine ([id number]) on 12/17/2023 9:19:45 PM Referred By: Cheo Phan Confirmed By:Olman Fine
== END 2023-12-15 11:44 | disposition home health service (06) ==
LOC: ASU 08:53 → 3W 08:53

== ENCOUNTER 2024-10-31 06:08 | Observation (INO) ==
--- NOTE | 2024-06-27 13:47 | PAT Medication Instructions ---
Medication Instructions Date of Service June 27, 2024 Home Medications cholecalciferol (vitamin D3) 25 mcg (1,000 unit) tablet (Vitamin D3) 1,000 unit PO QAM multivitamin 1 tab PO QAM glucosamine-chondroitin 250 mg-200 mg tablet (Osteo Bi-Flex) 1 tab PO QAM mecobalamin (vitamin B12) 1,000 mcg disintegrating tablet,sublingual 1,000 mcg sublingual QAM pantoprazole 40 mg tablet,delayed release 40 mg PO QAM acetaminophen 500 mg tablet (Tylenol Extra Strength) 1,000 mg PO BID pain clopidogrel 75 mg tablet 75 mg PO QPM cyanocobalamin (vitamin B-12) 500 mcg tablet (Vitamin B-12) 500 mcg PO QAM rosuvastatin 10 mg tablet 10 mg PO QPM ASK your prescriber and surgeon clopidogrel 75 mg tablet 75 mg PO QPM (From anesthesia perspective, Clopidogrel needs to be stopped 7 days before surgery. Please check if okay with doctor that prescribes this to you) STOP taking 2 weeks before surgery (or as soon as possible if surgery is within 2 weeks) glucosamine-chondroitin 250 mg-200 mg tablet (Osteo Bi-Flex) 1 tab PO QAM DO NOT take the morning of surgery cholecalciferol (vitamin D3) 25 mcg (1,000 unit) tablet (Vitamin D3) 1,000 unit PO QAM multivitamin 1 tab PO QAM mecobalamin (vitamin B12) 1,000 mcg disintegrating tablet,sublingual 1,000 mcg sublingual QAM cyanocobalamin (vitamin B-12) 500 mcg tablet (Vitamin B-12) 500 mcg PO QAM Take morning of surgery With a small sip of water, OTHERWISE NOTHING TO EAT OR DRINK AFTER MIDNIGHT: pantoprazole 40 mg tablet,delayed release 40 mg PO QAM acetaminophen 500 mg tablet (Tylenol Extra Strength) 1,000 mg PO BID pain (if needed) Take evening before surgery acetaminophen 500 mg tablet (Tylenol Extra Strength) 1,000 mg PO BID pain (if needed) rosuvastatin 10 mg tablet 10 mg PO QPM Other Notes If you have any questions please call us at [phone] or [phone] or [phone] or [phone]
--- NOTE | 2024-10-09 13:12 | Anesthesiology Consultation ---
Date of Service October 09, 2024 Assessment & Plan (1) Encounter for pre-operative examination: Plan - awaiting upcoming [place] PCP office visit 10/25/24. - neurology office visit 05/17/24 [facility]: "...States he had 3 episodes leading up to his ER visit including right arm and right face numbness, brief in nature. Did not go to the hospital. Presented to [facility] ED on 04/13/24 with slurred speech and right arm numbness x 15 minutes. Had similar episode few days prior. On presentation SBP was over 200. MRI brain no acute findings. CTA head/neck atherosclerosis without significant stenosis at carotid bifurcations. Moderate stenosis right vertebral artery. Intracranial atherosclerosis including moderate stenosis left posterior cerebral artery. Echocardiogram unremarkable. Discharged on plavix. History of rectal bleeding with aspirin. Saw PCP on 04/21/24. Ordered Zio monitor. Changed lovastatin to rosuvastatin 10mg daily. No additional TIA- like episodes since ED visit...Discussion regarding planned knee surgery in July. Recommend waiting 6 months s/p TIA to reduce risk of stroke. Follow up as needed..." - s/p right TKA 12/14/23 SAB 1 attempt + PNB: hospitalist note: "...Tachycardia- EKG per my read NSR with occasional PVCs-patient asymptomatic-cardiology note 2019 notes history of ectopic atrial and ventricular beats with stress, arrythmia determined to not be dangerous, patient was recommended to stop metoprolol. Metoprolol was not stopped at that time-09/20 patient developed bradycardia, metoprolol was discontinued, bradycardia improved-no need for additional rate control at this time. Elevated blood pressure reading without diagnosis of HTN...BP currently 159/84, given patient's very recent right knee replacement is likely elevated given recent stress/pain. Recommend pain control, BP recheck with PCP in outpatient setting-no need for additional medications at this time..." - Outpatient joint assessment: Patient is currently scheduled for inpatient pathway. If re-evaluated and patient/surgeon requests outpatient pathway, patient is not advised candidate for outpatient joint program from anesthesia standpoint. Chart Review Chart Review: Pending: Refer to Additional Notes / Consult section and Patient seen in Pre Admission Testing Teaching & Discussion Pre-Anesthesia Teaching/Discussion Notes: Instructed NPO after midnight before surgery, except medications with 15 cc of water. Medication instructions provided according to the PAT guidelines. History Surgery Operation Date: 10/31/24 07:00 Proposed Procedures p Left Total Knee Arthroplasty - Cheo Phan MD Height/Weight Height: 5 ft 11 in Weight: 83.4 kg Allergies Allergy/AdvReac Type Severity Reaction Status Date / Time aspirin AdvReac Intermediate Blood in Verified 09/29/24 09:35 stool Medications Home Medications Medication Instructions Recorded Confirmed Last Taken cholecalciferol (vitamin D3) 25 1,000 unit PO QAM 11/06/20 09/29/24 12/13/23 08:30 mcg (1,000 unit) tablet (Vitamin D3) multivitamin 1 tab PO QAM 11/06/20 09/29/24 12/13/23 08:30 glucosamine-chondroitin 250 mg-200 1 tab PO QAM 09/08/23 09/29/24 Unknown mg tablet (Osteo Bi-Flex) acetaminophen 500 mg tablet 1,000 mg PO QAM pain 06/27/24 09/29/24 Unknown (Tylenol Extra Strength) clopidogrel 75 mg tablet 75 mg PO QPM 06/27/24 09/29/24 Unknown cyanocobalamin (vitamin B-12) 500 500 mcg PO QAM 06/27/24 09/29/24 Unknown mcg tablet (Vitamin B-12) rosuvastatin 10 mg tablet 10 mg PO QPM 06/27/24 09/29/24 Unknown metoprolol tartrate 25 mg tablet 25 mg PO BID #180 tabs 06/30/24 09/29/24 Unknown ferrous sulfate 325 mg (65 mg 325 mg PO QAM 07/19/24 09/29/24 Unknown iron) tablet nystatin 100,000 unit/gram topical 1 applic topical TID PRN Rash 07/19/24 09/29/24 Unknown cream ascorbic acid (vitamin C) 1,000 mg 1 g PO QAM 09/29/24 09/29/24 Unknown tablet (Vitamin C) pantoprazole 40 mg tablet,delayed 40 mg PO QAM #90 tabs 09/29/24 Unknown release Past Medical History Medical History (Updated 10/11/24 @ 14:06 by Dena Mcginnis PA-C) Anemia BPH (benign prostatic hyperplasia) Dyslipidemia Esophageal stenosis (10/2020) hx- had esophageal dilation x 1 Generalized osteoarthritis History of anesthesia reaction pt's BP and heart rate dropped after last knee replacement per pt History of esophageal dilatation (10/2020) History of postoperative nausea and vomiting denies needing scop patch History of prostate cancer (2000) Hx of adenomatous polyp of colon Hx of essential hypertension no longer takes metoprolol Left knee DJD Mitral regurgitation pt. unaware, does not see cardio Paroxysmal supraventricular tachycardia by electrocardiogram (ECG) "No additional therapy is required in the absence of recurrent symptoms." per 09/2020 [place] cardiology note TIA (transient ischemic attack) (04/2024) several, most recent 04/2024, admit to [facility]pin, started on plavix Patient denies h/o stroke, heart attack, heart failure, DM, blood clots/DVTs or blood transfusions. Exercise / Class Metabolic Activity II 4-5 Yardwork/Stairs/Walk up hill (denies chest discomfort or shortness of breath with one flight of stairs) Past Family History Family History Other No family history of adverse response to anesthesia No pertinent family history Past Surgical History Surgical History (Updated 10/11/24 @ 14:06 by Dena Mcginnis PA-C) History of arthroplasty of right knee (12/14/23) History of esophagogastroduodenoscopy (EGD) (11/11/20) History of herniorrhaphy (1979) inguinal Hx of brachytherapy (2000) Hx of colonoscopy with polypectomy Past Anesthesia History No Family Hx of Anesthesia Complications History of PONV No Hx of Motion Sickness and History of PONV (denies needing scop patch) Social History Smoking Status: Never smoker Do You Dip or Chew Tobacco: No Hx Alcohol Use: No Hx Substance Use: No substance use type: does not use Review of Systems Occasional snoring, denies witnessed apneas. Patient denies chest pain, shortness of breath, dyspnea on exertion, fever, chills, cough, wheezing, or palpitations. Physical Exam Vital Signs Vitals BP 109/73 P 101 TEMP 97.4 SP02 96% on RA RESP 19 Physical Patient resting comfortably in chair in no acute distress, alert and oriented, responding appropriately throughout visit Full cervical extension range of motion without pain TMD 3.5 finger breadths Mallampati Score 3 Dentition: intact, denies chipped or loose teeth, caps/crowns, implants or bridges Lungs: normal respiratory effort. Good air movement, clear throughout to auscultation, no adventitious breath sounds Cardiac: regular rate and rhythm, no murmurs noted Carotid arteries: negative bruit bilat Lab Results Anesthesia Preop Results Results Anesthesia Widget: WBC 6.69 K/ul (4.8-10.8) 10/09/24 Hgb 12.1 g/dl (14.0-18.0) L 10/09/24 Hct 37.3 % (42.0-52.0) L 10/09/24 Plt 258 K/uL (130-400) 10/09/24 Na 141 mmol/L (136-145) 10/09/24 K 4.6 mmol/L (3.5-5.1) 10/09/24 Cl 107 mmol/L (98-107) 10/09/24 CO2 28 mmol/L (21-32) 10/09/24 BUN 30 mg/dl (6-23) H 10/09/24 Creat 1.04 mg/dl (0.6-1.4) 10/09/24 Glucose Level 110 mg/dl (70-99(Fasting)) H 10/09/24 PT 10.9 Seconds (9.0-12.0) 10/09/24 PTT 27 Seconds (21-31) 10/09/24 INR 1.0 (0.9-1.1) 10/09/24 Blood Type O Positive 10/09/24 Antibody Screen NEGATIVE 10/09/24 Testing Electrocardiogram Date: 10/09/24 Sinus rhythm with 1st degree AV block with frequent PVCs, rate 77 bpm Chest X-Ray Date: 04/13/24 No acute findings. Echocardiogram Date: 04/14/24 EF 51% Mild cLVH Mild aortic valve regurgitation Mild mitral regurgitation Mild tricuspid regurgitation No pericardial effusion Mildly enlarged RA Moderately enlarged LA Stress Test Date: 09/27/20 Negative for ischemia MPHR 152% SVT developed during exercise with heart rates as high as 218 bpm-sustained prompting termination of exercise EF 55-60% No LV regional wall motion abnormalities Moderate cLVH Mild mitral regurgitation Other Testing Cardiac event monitor 05/20/24 Predominantly sinus rhythm with an average rate of 97 bpm (range 68-160 bpm) Frequent atrial ectopy noted (10% of all beats) with several brief episodes of supraventricular tachycardia (3-5 beats duration). No atrial fibrillation. Frequent ventricular ectopy noted (12% of all beats) with one 8 beat run of ventricular tachycardia. No significant pauses or heart block. No symptoms reported. MRI brain 04/13/24 No acute findings to account for the patient's clinical symptomatology. Specifically, no recent infarct. Nonspecific white matter changes, likely represent moderate chronic microvascular change. Head and neck CTA 04/13/24 No acute abnormalities are identified by CT. Atherosclerosis without significant stenosis at the carotid bifurcations. Moderate stenosis of the origin of the hypoplastic right vertebral artery. Intracranial atherosclerosis, most notable for moderate stenosis of the P2 segment of the left posterior cerebral artery.
[~2024-10-31 06:08] MED LIST changes: -ACETAMINOPHEN 500 MG TAB PO SCH; -BUPIVACAINE 0.25% PF 30 ML VIAL ONE; -BUPIVACAINE 0.5 % 5 MG/1 ML PF 10ML VIAL ONE; -CeleBREX 200 MG CAP PO SCH; -FAMOTIDINE 20 MG TAB PO SCH; -METOCLOPRAMIDE HCL 10 MG TABLET PO SCH; -MIDAZOLAM HCL 1 MG/ML 2ML VIAL ONE; -ROPIV 0.5% 246mg, Ketorolac 30mg, EPINEPHrine 0.5mg in NSS INFIL SCH; -TRANEXAMIC ACID 1,000 MG **IV Intra-op IV SCH; -ceFAZolin 2000MG 2,000 MG/15 ML SYR IV SCH; -dexAMETHasone**PF** 10 MG/ML VIAL IV SCH
[2024-10-31] MEDS ORDERED: ROPIVACAINE 0.5% 5 MG/ML 30 ML VIAL ONE (06:27)
--- NOTE | 2024-10-31 06:50 | History & Physical Bridge Note ---
Date of Service October 31, 2024 History & Physical Bridge Note I have examined the patient, reviewed the History & Physical and in the interval since the performance of the History & Physical I have noted the following changes of clinical significance: no changes noted
[2024-10-31] MEDS: ACETAMINOPHEN 500 MG TAB PO SCH ×2 (07:15→13:28)
[2024-10-31] MEDS: FAMOTIDINE 20 MG TAB PO SCH (07:16)
[2024-10-31] MEDS: CeleBREX 200 MG CAP PO SCH (07:16)
[2024-10-31] MEDS: METOCLOPRAMIDE HCL 10 MG TABLET PO SCH (07:16)
[2024-10-31] MEDS: LACTATED RINGER'S 1,000 ML IV SCH (07:17)
[2024-10-31] MEDS: dexAMETHasone**PF** 10 MG/ML VIAL IV SCH (07:17)
[2024-10-31] MEDS ORDERED: MIDAZOLAM HCL 1 MG/ML 2ML VIAL ONE (07:41)
[2024-10-31] MEDS ORDERED: PROPOFOL IV EMULSION 10 MG/ML 20 ML VIAL IV ONE (07:43)
[2024-10-31] MEDS ORDERED: ePHEDrine sulfate 50 MG/ML AMP IV PRN (08:23)
[2024-10-31] MEDS ORDERED: HYDROmorphone INJ 1 MG/ML SYRINGE IV PRN (08:23)
[2024-10-31] MEDS ORDERED: fentaNYL citrate PF 100 MCG/2 ML VIAL IV PRN (08:23)
[2024-10-31] MEDS ORDERED: ONDANSETRON INJ 2 MG/ML 2 ML VIAL IV PRN ×2 (08:23→12:26)
[2024-10-31] MEDS ORDERED: ATROPINE SULFATE 0.1 MG/ML 10ML SYR IV PRN (08:23)
[2024-10-31] MEDS: ceFAZolin 2000MG 2,000 MG/15 ML SYR IV SCH ×2 (08:49→16:30)
[2024-10-31] MEDS ORDERED: LIDOCAINE 2% 2 ML VIAL/AMP(20MG/ML) INFIL ONE (08:57)
[2024-10-31] MEDS: ROPIV 0.5% 246mg, Ketorolac 30mg, EPINEPHrine 0.5mg in NSS INFIL SCH (09:29)
[2024-10-31] MEDS: ORTHO JOINT ANESTHETIC ONE (09:29)
[2024-10-31] MEDS: TRANEXAMIC ACID 1,000 MG **IV Intra-op IV SCH (09:40)
--- NOTE | 2024-10-31 10:51 | Operative Report ---
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 He had extensive grade 4 [id number] disease in all 3 compartments with a fixed varus deformity to his knee. Osteophytes in all 3 compartments. Moderate-sized joint effusion. Fixed varus deformity. Specimens Left knee sent for pathology. Anesthesia Type Spinal MAC Complications none Disposition Accompanied Patient To Recovery: No Indications The patient is an 79-year-old [place] whose had a long history of bilateral knee pain discomfort described to gotten worse over time. He had his right knee replaced about 10 months ago and was planning on doing the left one shortly thereafter but had a TIA and had to be on Plavix for 6 months. He is now recovered from that. Doing well. Continues to be limited by his left knee pain discomfort deformity. He failed all conservative measures. He elected proceed with left total knee arthroplasty. Description of Procedure Operative implants consist of: 1 Biomet Vanguard size 75 left posterior stabilized femoral component. 2. Biomet size 79 tibial tray. 3. 12 mm posterior stabilized polyethylene insert. 4. 34 x 8 and half all poly patella. The patient was taken to the op room, identified, placed on the operating table in the supine position. All contact areas were appropriately padded. IV antibiotics fibra anesthesia team. A spinal anesthetic and adductor canal block had provided holding area. A left thigh turn was then placed. The left lower extremities then prepped and draped in usual sterile fashion. The left leg was elevated and exsanguinated with use of an Esmarch and the turn was placed at 300 mmHg. An anterior approach to the left knee was then performed to a longitudinal incision centered over the patella. Sharp dissection was got through subcutaneous tissue down the extensor mechanism. A medial parapatellar arthrotomy incision was made. Some subperiosteal dissection was carried out medially. The fat pad was resected from his patella tendon. The lateral patellofemoral ligament was released. Patella subluxated laterally and the knee was flexed. The osteophytes taken off distal femur. The ACL and PCL were then released from distal femur the tibia subluxated anteriorly. The external tibial alignment jig was then placed on the anterior face the tibia and adjusted 16 mm medially. The proximal tibial cut was made essentially flush with the most efficient aspect of the medial tibial plateau. Some osteophytes w ere taken off medial and posterior medially. The tibia sized to a size 79. Attention drawn the femur The distal femur examined the sharp drill. Intramedullary canal was suction. A left 6 degree valgus cutting guide was placed. The distal femoral cutting block was pinned in place. This femoral cut was made to take an additional 3 mm of bone off distal femur. The femur was then sized to a size 75. The AP cutting block was pinned parallel to the epicondylar axis which was 5 degrees of external rotation. The anterior cut, anterior chamfer, posterior cut, posterior chamfer cuts were made. The box cutting guide was then placed and adjusted slightly laterally. The box cut was made. The knee was flexed. The remnants of the medial and lateral menisci were excised. The osteophytes taken off the posterior aspect the femur. A trial femoral component was placed. Tibial tray was then pinned in Binta external rotation and the drill and stem punch were used to create defect in proximal tibia for the tibial tray. The knee was then trialed and the 12 mm insert fit most appropriately. Attention drawn the patella. The patella was cleaned of all soft tissue. With the patella thickness measured 26 mm in thickness was cut down to 15. Was sized to a size 34 patella. The lug holes were drilled for 34 patella. The lateral osteophytes removed. Patella button was placed. Knee was taken through range of motion patella tracked nicely with no thumbs test. Attention was then drawn toward placing the permanent components. All trial components were removed. Bone plug was placed into this femur limit blood loss. A double batch Palacos G cement was mixed. A Biomet Vanguard size 75 left posterior Byce femoral component, size 79 tibial tray, 12 mm posterior Byce polyethylene insert, and a 34 x 8 and half all poly patella then cemented in place. The knee was brought out into full extension till cement hardened. A final cement check was then performed. The pericapsular tissues were injected with a total of 100 cc of Ortho mix. The patient did receive 1 g tranexamic acid. The tourniquet was then let down for final turn time 56 minutes. Hemostasis assured use electrocautery. Extensor Metros then closed with combination 1 PDS suture #1 Vicryl suture in a [id number] fashion. Extensor Meclomen checked found to be intact through subcutaneous tissue then closed with 2 Dexon suture in a buried interrupted fashion skin was closed skin evan. Leg was then cleaned and dried and a sterile dressing was Xeroform, 4 fours, sterile cast padding and José Antonio bandage were applied. Patient then transferred to the recovery room in stable condition. The patient tolerated procedure well and there were no complications. Emmanuel Naik, my physician assistant buyer, was present for the entire procedure. His assistance was essential and required for appropriate patient positioning, prepping and draping, surgical exposure, performing the technical details of the operation, placement the implants, closure of the wound, and placement of the sterile bandage. I attest to the content of the Intraoperative Record and any orders documented therein. Any exceptions are noted below.
--- NOTE | 2024-10-31 11:15 | Anesthesiology Progress Note ---
Date of Service October 31, 2024 Anesthesia Post Procedure Vital Signs Vital Signs: Temp Pulse Pulse Resp BP Pulse Ox O2 Del Method 10/31/24 11:05 86 16 133/73 92 Room Air 10/31/24 10:55 83 13 126/71 96 Oxymask 10/31/24 10:45 86 14 108/70 95 Oxymask 10/31/24 10:37 36.0 C L 66 18 99/47 L 95 Oxymask 10/31/24 06:59 36.8 C 75 20 164/72 H 95 Room Air O2 Flow Rate 10/31/24 11:05 10/31/24 10:55 4 10/31/24 10:45 6 10/31/24 10:37 6 10/31/24 06:59 Pain Intensity Left Knee: Pain Intensity: 5 Transfer of Care Handoff Completed per policy Notes Mental Status: alert / awake / arousable and participated in evaluation Patient Amnestic to Procedure: Yes Nausea / Vomiting: adequately controlled Pain: adequately controlled Airway Patency, RR, SpO2: stable & adequate BP & HR: stable & adequate Hydration State: stable & adequate Neuraxial Anesthesia: was administered and sensory block is resolving Anesthetic Complications: no major complications apparent and Pt Satisfied with anesthetic care
--- NOTE | 2024-10-31 11:48 | XRay Report ---
XR knee LT 1 or 2V routine CLINICAL HISTORY: Surgical Post Op COMPARISON: Left knee radiographs February 17, 2024. FINDINGS: Alignment of the total left knee arthroplasty is anatomic. There is no periprosthetic frac ture or unexpected radiopaque foreign body. There are skin evan. IMPRESSION: Expected findings following total left knee arthroplasty. ACT 112: Negative or not required by law. Electronically signed by: Scar Thurman M.D. 10/31/2024 11:47 AM
[2024-10-31] MEDS ORDERED: NALOXONE HCL 0.4 MG/1 ML VIAL/CARP IV PRN (12:26)
[2024-10-31] MEDS ORDERED: bisacodyL 10 MG SUPP PR PRN (12:26)
[2024-10-31] MEDS ORDERED: NYSTATIN CR 15 GM TUBE EXT PRN (12:26)
[2024-10-31] MEDS ORDERED: HYDROmorphone INJ 0.5 MG/0.5 ML SYR IV PRN (12:26)
[2024-10-31] MEDS ORDERED: MAGNESIUM HYDROXIDE SUSP 30 ML UDC PO PRN (12:26)
[2024-10-31] MEDS ORDERED: METOCLOPRAMIDE HCL INJ 5 MG/ML 2 ML VIAL IV PRN (12:26)
[2024-10-31] MEDS ORDERED: ALUMINUM/MAGNESIUM SUSP 30 ML UDC PO PRN (12:26)
[2024-10-31] MEDS: SODIUM CHLORIDE 0.9% 1,000 ML IV SCH (13:03)
[2024-10-31] MEDS: KETOROLAC TROMETHAMINE 15 MG/ML VIAL IV SCH (13:03)
[2024-10-31] MEDS: oxyCODONE HCL IR 5 MG TAB (IMMEDIATE RELEASE) PO PRN (13:27)
[2024-10-31] MEDS: ASCORBIC ACID 500 MG TAB PO SCH (16:30)
[2024-10-31] MEDS: TRANEXAMIC ACID / 0.7% NACL 1,000 MG/100 ML BAG IV SCH (16:30)
[2024-10-31] MEDS ORDERED: ASCORBIC ACID 500 MG TAB PO SCH (17:00)
[2024-10-31 20:28] VITALS: RESP 18
[2024-10-31] MEDS: DOCUSATE SODIUM 100 MG CAP PO SCH (20:29)
[2024-10-31] MEDS: METOPROLOL TARTRATE 25 MG TAB PO SCH (20:29)
[2024-10-31] MEDS: ROSUVASTATIN CALCIUM 10 MG TAB PO SCH (20:29)
[2024-10-31] MEDS: SENNA 8.6 MG TAB PO SCH (20:29)
[2024-10-31] MEDS ORDERED: SENNA 8.6 MG TAB PO SCH (21:00)
[2024-11-01 06:27] LABS: Hematocrit (blood only) 30.4 % (42.0-52.0); Hemoglobin 10.4 g/dl (14.0-18.0); Mean Corpuscular Hemoglobin 32.1 pg (25.0-34.0); Mean Corpuscular Hgb Conc 34.2 g/dL (32.0-36.0); Mean Corpuscular Volume 93.8 fL (80.0-100.0); Platelet Count 268 K/uL (130-400); RDW Coefficient of Variation 12.5 % (11.5-14.5); RDW Standard Deviation 43.3 fL (36.4-46.3); Red Blood Count 3.24 M/uL (4.70-6.10); White Blood Count 13.56 K/ul (4.8-10.8)
[2024-11-01 06:50] LABS: BUN Creatinine Ratio 32.8 (10-20); Calcium 8.8 mg/dl (8.6-10.3); Creatinine Clr Calc Pharmacy 47.1 ml/min; Potassium 4.7 mmol/L (3.5-5.1)
--- NOTE | 2024-11-01 07:05 | Orthopedic Progress Note ---
Date of Service November 01, 2024 Assessment & Plan (1) Status post total left knee replacement: Pain controlled. dvt prophylaxis: teds, scd's, plavix PT/OT wbat d/c planning: home with home health today will discuss with Dr Sylvester Gonzalez .79 year old patient POD 1 from left tka. Doing well. Pain controlled. Sitting in chair and hoping to go home today. Review of Systems All systems reviewed & are unremarkable except as noted in HPI & below. Physical Exam .alert and oriented. NAD VSS hgb 10.4 today left leg: dressing clean, dry, intact. Able to DF/PF, move toes, NVI Results & Data Results & Data Laboratory Results . Diagnostic Findings . PG Care Time/CCT Total # of Minutes Spent Total Time Spent with Patient: Total time spent is greater than 50% in coordination of care (as documented) at patient's floor/unit and/or counseling patient: Coding Level of Care Code 55410 Post Operative Follow-Up Diagnoses Status post total left knee replacement Z96.652
[2024-11-01 07:21] VITALS: BP 147/85; PULSE 101; TEMP 98.4; O2SAT 95
[2024-11-01] MEDS: dexAMETHasone 10 MG in SYRINGE 0 ML IV SCH (07:27)
[2024-11-01] MEDS: CHOLECALCIFEROL 25 MCG (1000 UNITS) TAB PO SCH (07:27)
[2024-11-01] MEDS: TAMSULOSIN HCL 0.4 MG CAP PO SCH (07:28)
[2024-11-01] MEDS: FERROUS SULFATE 325 MG TAB PO SCH (07:28)
[2024-11-01] MEDS: PANTOprazole 40 MG TAB PO SCH (07:28)
[2024-11-01] MEDS: CYANOCOBALAMIN (B-12) 500 MCG TABLET PO SCH (07:28)
[2024-11-01] MEDS: MULTIVITAMIN TAB PO SCH (07:28)
[2024-11-01] MEDS ORDERED: NON-FORMULARY MEDICATION (Ascorbic Acid (Vitamin C) [Vitamin C] 1,000 mg Tablet) PO SCH (09:00)
[2024-11-01] MEDS ORDERED: MULTIVITAMIN TAB PO SCH (09:00)
[2024-11-01] MEDS ORDERED: CLOPIDOGREL BISULFATE 75 MG TAB PO SCH (21:00)
== END 2024-11-01 11:47 | disposition home health service (06) ==
LOC: ASU 06:08 → 3E 06:08